=== PATIENT | female | born 1950 | race Caucasian/White ===

== ENCOUNTER 2021-10-11 19:40 | Emergency (ER) | payer MEDICARE ==
[~2021-10-11] VITALS: Ht 172.7 cm; Wt 68.0 kg
[2021-10-11 21:41] VITALS: BP 161/80
[2021-10-11] MEDS ORDERED: NEOMYCIN-BACITRACIN-POLYM UNITDOSE PKG TOP OINT TOP ONE (22:30)
== END 2021-10-11 23:22 | disposition home or self-care (01) ==
LOC: ER 19:55
DX: S91.212A Laceration without foreign body of left great toe with damage to nail, initial encounter (principal); W23.0XXA Caught, crushed, jammed, or pinched between moving objects, initial encounter; Y93.89 Activity, other specified; Y92.89 Other specified places as the place of occurrence of the external cause; Y99.8 Other external cause status
CPT/HCPCS: 12002; 99283; J2001

== ENCOUNTER 2024-09-07 14:00 | Emergency (ER) | payer OTHER ==
[~2024-09-07] VITALS: Ht 170.2 cm; Wt 77.0 kg
[2024-09-07 14:01] VITALS: BP 121/70; PULSE 82; RESP 20; O2SAT 94
--- NOTE | 2024-09-13 11:39 | DVH ---
CLINICAL INDICATION: INJURY TECHNIQUE: 3 XY FACIAL BONES COMPLETE Comparison: None FINDINGS/IMPRESSION: : Subtle angulation of the distal nasal bone may represent a nondisplaced fracture. Clinical correlati on advised. Findings appears similar to radiograph dated 09/07/2024.
== END 2024-09-07 16:12 | disposition left against medical advice (07) ==
LOC: ER 14:00
DX: S09.92XA Unspecified injury of nose, initial encounter (principal); Z53.21 Procedure and treatment not carried out due to patient leaving prior to being seen by health care provider; W19.XXXA Unspecified fall, initial encounter; Y93.89 Activity, other specified; Y92.89 Other specified places as the place of occurrence of the external cause; Y99.8 Other external cause status
CPT/HCPCS: 70140